=== PATIENT | male | born 1975 | race Caucasian/White ===

== ENCOUNTER → 2016-12-31 | Outpatient (REF) ==
[~2016-12-31] MED LIST: PERCOCET 325 MG1 TA2 PO; PREDNISONE20 MG PO; UNABLE; VALTREX 50500 MG/TAB PO
== END ==
LOC: WSOH 16:05
DX: Z02.89 Encounter for other administrative examinations (principal)

== ENCOUNTER 2017-06-24 12:12 | Day surgery (SDC) | payer OTHER ==
[~2017-06-24] VITALS: Ht 172.7 cm; Wt 85.4 kg
[2017-06-24 12:44] VITALS: BP 123/65; PULSE 54; TEMP 98.3
[2017-06-24 14:39] VITALS: BP 96/53; PULSE 56; TEMP 99.7
[2017-06-24 14:55] VITALS: BP 100/61; PULSE 49
[2017-06-24] MEDS ORDERED: NORCO 325 MG-7.1 TAB PO (14:58)
[2017-06-24] MEDS ORDERED: CEPHALEXIN500 M1 PO (14:59)
[2017-06-24] MEDS ORDERED: PHENERGAN 25 TA25 MG PO (15:00)
[2017-06-24 15:15] VITALS: BP 101/64; PULSE 51
== END 2017-06-24 15:55 | disposition home or self-care (01) ==
LOC: SDCO 12:12
DX: M20.22 Hallux rigidus, left foot (principal)
CPT/HCPCS: C1713; J0670; J0690; J2250; J2405; J2704; J3010; J7120

== ENCOUNTER → 2019-08-25 | Outpatient (CLI) | payer OTHER ==
[~2019-08-25] MED LIST changes: +CEPHALEXIN500 M1 PO; +NORCO 325 MG-7.1 TAB PO; +PHENERGAN 25 TA25 MG PO
== END ==
LOC: COL.RAD 07:13
DX: M47.817 Spondylosis without myelopathy or radiculopathy, lumbosacral region (principal)
CPT/HCPCS: Q9967

== ENCOUNTER → 2020-05-21 | Outpatient (REF) | LOC: WSOH 13:35 | DX: U07.1 COVID-19 (principal) ==

== ENCOUNTER 2020-08-23 05:34 | Day surgery (SDC) | payer OTHER ==
[~2020-08-23] VITALS: Ht 172.7 cm; Wt 89.1 kg
[2020-08-23 06:18] VITALS: BP 128/65; PULSE 66; TEMP 97.1
[2020-08-23 07:47] VITALS: BP 99/44; PULSE 56
--- NOTE | 2020-08-23 07:47 | NUR ---
Patient returns to room 7 per cart from surgery accompanied by Sabine HERNANDEZ and Laurent PETTY. Patient is awake and alert. Right arm in bulky favio wrap dressing and posterior splint. Denies pain and patient had supraclavicular block placed pre-op. Right arm elevated on pillow. IV fluids infusing. Allowed to rest. Call light in reach and siderails up x2.
[2020-08-23 08:03] VITALS: BP 99/51; PULSE 41
--- NOTE | 2020-08-23 08:03 | NUR ---
Awake and drinking applejuice. Denies pain or nausea.
[2020-08-23 08:18] VITALS: BP 103/67; PULSE 53
--- NOTE | 2020-08-23 08:18 | NUR ---
Eating toast and continues to deny pain or nausea. Richar wrap dressing dry and intact on the right arm.
[2020-08-23 08:33] VITALS: BP 101/63; PULSE 51
--- NOTE | 2020-08-23 08:33 | NUR ---
Tolerated toast and juice. Resting without complaints of pain or nausea. Fingers remain warm and pink on the right hand. Sling maintained.
[2020-08-23 08:47] VITALS: BP 99/66; PULSE 51
--- NOTE | 2020-08-23 08:47 | NUR ---
Offers no complaints of pain.
--- NOTE | 2020-08-23 09:00 | NUR ---
IV discontinued and site is free of redness. Assisted patient with dressing and right arm remains numb from the block. Tolerates activity well.
--- NOTE | 2020-08-23 09:15 | NUR ---
Dismissal instructions given and voices understanding of these. Pain medications were filled pre operatively.
--- NOTE | 2020-08-23 09:27 | NUR ---
Patient dismissed to home driven by friend and taken to the front door per wheelchair and assisted into vehicle with instructions in hand.
== END 2020-08-23 09:27 | disposition home or self-care (01) ==
LOC: SDCO 05:34
DX: M77.11 Lateral epicondylitis, right elbow (principal); M24.121 Other articular cartilage disorders, right elbow; Z20.822 Contact with and (suspected) exposure to COVID-19
CPT/HCPCS: J0690; J1100; J1885; J2250; J2704; J2795; J3010; J7120

== ENCOUNTER 2020-11-15 10:30 | Outpatient (RCR) | payer OTHER | END 2020-12-06 08:42 | disposition home or self-care (01) | LOC: WSOT 10:30 | DX: M25.521 Pain in right elbow (principal) ==

== ENCOUNTER 2020-12-28 12:36 | Day surgery (SDC) | payer OTHER ==
[~2020-12-28] VITALS: Ht 172.7 cm; Wt 80.0 kg
[2020-12-28 13:41] VITALS: BP 112/75; PULSE 47; TEMP 97.6
[2020-12-28 15:05] VITALS: BP 112/75; PULSE 46; TEMP 97.4
[2020-12-28 15:16] VITALS: BP 124/74; PULSE 49
--- NOTE | 2020-12-28 15:21 | NUR ---
PT IS ALERT AND ORIENTATED UPON ARRIVAL PER CART FROM THE ENDO PROCEDURE ROOM INTO BAY #4. LUNGS CLEAR, HRR, DANETTE, BOWEL SOUNDS ACTIVE X4. IVF PATENT INFUSING INTO RIGHT HAND. PT REQUESTS BLUEBERRY MUFFIN AND SPRITE, PT TOLERATED WELL. WILL MONITOR.
--- NOTE | 2020-12-28 15:27 | NUR ---
PT TOLERATING FOOD AND FLUID WITHOUT DIFFICULTY. PT DENIES NAUSEA OR PAIN AT THIS TIME.
[2020-12-28 15:35] VITALS: BP 128/82; PULSE 47
--- NOTE | 2020-12-28 16:01 | NUR ---
IV WAS DC'D TO RIGHT HAND, PT TOLERATED WELL. PT TOLERATING FOOD AND FLUIDS WELL. DISMISSAL INSTRUCTIONS PROVIDED, PT VOICED UNDERSTANDING. PT WAS TAKEN OUT THROUGH THE PATIENT ENTRANCE PER WC. SON, DANETTE DRIVING PATIENT HOME IN FAMILY CAR.
== END 2020-12-28 16:07 | disposition home or self-care (01) ==
LOC: SDCO 12:36
DX: K62.89 Other specified diseases of anus and rectum (principal); K64.8 Other hemorrhoids; Z20.822 Contact with and (suspected) exposure to COVID-19; Z79.899 Other long term (current) drug therapy
CPT/HCPCS: J2704; J7030